=== PATIENT | female | born 1975 | race Caucasian/White ===

== ENCOUNTER 2017-06-01 11:19 | Emergency (ER) | payer OTHER ==
[~2017-06-01] VITALS: Ht 167.6 cm; Wt 78.8 kg
[~2017-06-01 11:19] MED LIST: ATARAX,VISTARIL25 MG PO; AUGMENTIN80 MG/ML PO; AURALGAN14.8 ML RIGHT EAR; BENADRYL25 MG PO; CIPRO HC OTIC S10 ML RIGHT EAR; DAILY VITE1 EAC1 PO; FLEXERIL10 MG PO; LORTAB 10 MG-3473 ML PO; MOTRIN800 MG PO; NAPROSYN500 MG PO; PREDNISONE10 M1 PO; PRENATAL TABLE1 EAC3 PO; ULTRAM50 MG PO; VALTREX1000 MG PO
[2017-06-01] MEDS ORDERED: FLEXERIL10 MG PO (13:18)
[2017-06-01] MEDS ORDERED: NAPROSYN500 MG PO (13:18)
[2017-06-01 13:22] VITALS: BP 144/83
== END 2017-06-01 13:27 | disposition home or self-care (01) ==
LOC: EME 11:19
DX: M54.5 Low back pain (principal); R07.9 Chest pain, unspecified; R19.7 Diarrhea, unspecified; V43.52XA Car driver injured in collision with other type car in traffic accident, initial encounter; Y92.410 Unspecified street and highway as the place of occurrence of the external cause
CPT/HCPCS: 71020; 72100; 99281; 99284